=== PATIENT | male | born 1965 | race Caucasian/White ===

== ENCOUNTER 2017-09-22 19:52 | Outpatient (CLI) | payer BC | END 2017-09-23 05:36 | disposition home or self-care (01) | LOC: SLEEP 19:52 | PROVIDERS: ATTEND Internal Medicine | DX: G47.33 Obstructive sleep apnea (adult) (pediatric) (principal) | CPT/HCPCS: 95810 ==

== ENCOUNTER 2017-11-03 21:05 | Outpatient (CLI) | payer BC | END 2017-11-04 06:25 | disposition home or self-care (01) | LOC: SLEEP 21:05 | PROVIDERS: ATTEND Internal Medicine | DX: G47.33 Obstructive sleep apnea (adult) (pediatric) (principal) | CPT/HCPCS: 95811 ==